=== PATIENT | female | born 1945 | race Caucasian/White ===

== ENCOUNTER 2024-03-01 08:04 | Outpatient (CLI) | payer MEDICARE | END 2024-03-01 08:05 | disposition home or self-care (01) | LOC: NM 08:04 | PROVIDERS: ATTEND Psychiatry & Neurology Neurology | DX: R29.818 Other symptoms and signs involving the nervous system (principal); G31.89 Other specified degenerative diseases of nervous system | CPT/HCPCS: 78803; A9584 ×2 ==